=== PATIENT | female | born 1980 | race Caucasian/White ===

== ENCOUNTER 2017-08-02 22:08 | Emergency (ER) | payer OTHER ==
[~2017-08-02] VITALS: Ht 165.1 cm; Wt 54.4 kg
[2017-08-02] MEDS ORDERED: OLME5TAB3 PO (22:32)
--- NOTE | 2017-08-02 22:33 | NUR ---
PT DECIDED TO GO HOME. STATED SHE WAS NOT GOING TO WAITING FOR HOURS EVERYONE ELSE WAS. PT AMBULATED W/O DIFF/TOOK ALL HER BELONGINGS.
== END 2017-08-02 22:33 | disposition left against medical advice (07) ==
LOC: ER 22:10
DX: Z53.21 Procedure and treatment not carried out due to patient leaving prior to being seen by health care provider (principal)
CPT/HCPCS: A4663